=== PATIENT | male | born 1965 | race Caucasian/White ===

== ENCOUNTER 2017-02-23 12:01 | Observation (INO) | payer SELFPAY ==
[~2017-02-23 12:01] MED LIST: REGADENOSON INJ 0.4 MG/5 ML DISP.SYRIN IV ONE
--- NOTE | 2017-02-23 12:19 | ER Document Report ---
ED Medical Screen (RME) - General Stated Complaint: CHEST PAIN/BLOOD PRESSURE ISSUES Time seen by provider: 12:17 Mode of Arrival: Medic Information source: Patient Notes: 51-year-old male presents to ED for chest pain via EMS from the [facility] and [facility]. His initial blood pressure was 236/148 EMS his blood pressure was 220/120 manual. Some nausea and productive cough for couple days. He has had 4 baby aspirin one nitroglycerin 20 Angiocath in the right AC. Denies pain with this medicine. I have greeted and performed a rapid initial assessment of this patient. A comprehensive ED assessment and evaluation of the patient, analysis of test results and completion of medical decision making process will be conducted by an additional ED providers.
[2017-02-23 13:08] LABS: ABSOLUTE BASOPHILS # (AUTO) 0.1 10^3/uL (0.0-0.2); ABSOLUTE LYMPHOCYTES (AUTO) 2.4 10^3/uL (0.5-4.7); ABSOLUTE MONOCYTES (AUTO) 0.8 10^3/uL (0.1-1.4); ABSOLUTE NEUT (AUTO) 5.1 10^3/uL (1.7-8.2); BASOPHILS % (AUTO) 0.8 % (0-2); EOSINOPHILS % (AUTO) 0.5 % (0-6); HEMATOCRIT 53.5 % (37.9-51.0); HEMOGLOBIN 18.8 g/dL (13.5-17.0); HGB HCT DIFFERENCE 2.9; LYMPHOCYTES % (AUTO) 28.3 % (13-45); MEAN CORPUSCULAR HEMOGLOBIN 34.7 pg (27.0-33.4); MEAN CORPUSCULAR HGB CONC 35.1 g/dL (32.0-36.0); MEAN CORPUSCULAR VOLUME 99 fl (80-97); RED BLOOD COUNT 5.41 10^6/uL (4.35-5.55); RED CELL DISTRIBUTION WIDTH 14.3 % (11.5-14.0); SEGMENTED NEUTROPHILS % (AUTO) 61.4 % (42-78); WHITE BLOOD COUNT 8.4 10^3/uL (4.0-10.5)
[2017-02-23] MEDS ORDERED: NITROGLYCERIN 0.4 MG/TAB 25 TAB/BOTTLE SL PRN (13:09)
[2017-02-23] MEDS ORDERED: NITROGLYCERIN 0.4 MG/TAB 25 TAB/BOTTLE ONE (13:11)
[2017-02-23 13:14] LABS: PROTHROMBIN TIME 14.1 SEC (11.4-15.4)
[2017-02-23 13:15] LABS: PARTIAL THROMBOPLASTIN TIME 30.9 SEC (23.5-35.8)
[2017-02-23 13:34] LABS: ALANINE AMINOTRANSFERASE 115 U/L (21-72); ALBUMIN 4.9 g/dL (3.5-5.0); ALKALINE PHOSPHATASE 49 U/L (38-126); ANION GAP 19 (5-19); ASPARTATE AMINO TRANSFERASE 109 U/L (17-59); BILIRUBIN,DIRECT 0.5 mg/dL (0.0-0.4); BLOOD UREA NITROGEN 10 mg/dL (7-20); CALCIUM 10.7 mg/dL (8.4-10.2); CARBON DIOXIDE 26 mmol/L (22-30); CHLORIDE 97 mmol/L (98-107); CREATINE KINASE 63 U/L (55-170); CREATININE RESULT 0.69 mg/dL (0.52-1.25); GLUCOSE 112 mg/dL (75-110); MAGNESIUM 1.8 mg/dL (1.6-2.3); POTASSIUM 3.9 mmol/L (3.6-5.0); SODIUM 142.2 mmol/L (137-145); TOTAL PROTEIN 9.4 g/dL (6.3-8.2)
--- NOTE | 2017-02-23 13:37 | ER Document Report ---
ED General - General Chief Complaint: Headache Stated Complaint: CHEST PAIN/BLOOD PRESSURE ISSUES Mode of Arrival: Medic Information source: Patient Notes: 51-year-old male history of hypertension uncontrolled smoker presents with complaints of chest pressure sensation left-sided pain started yesterday continues today. Patient notes it feels better by rubbing his chest. TRAVEL OUTSIDE OF THE [place] IN LAST 30 DAYS: No - HPI Onset: Just prior to arrival Onset/Duration: Sudden Quality of pain: No pain Severity: Mild Pain Level: 1 Associated symptoms: Chest pain Exacerbated by: Denies Relieved by: Other Similar symptoms previously: No Recently seen / treated by doctor: No Past Medical History - General Information source: Patient - Social History Smoking Status: Current Every Day Smoker Cigarette use (# per day): Yes Chew tobacco use (# tins/day): No Smoking Education Provided: Yes - Patient counselled regarding cessation for 4 minutes Frequency of alcohol use: None Drug Abuse: None Family History: Reviewed & Not Pertinent Patient has suicidal ideation: No Patient has homicidal ideation: No Renal/ Medical History: Denies: Hx Peritoneal Dialysis Review of Systems - Review of Systems Notes: REVIEW OF SYSTEMS: CONSTITUTIONAL : Denies fever, chills, or sweats. Denies recent illness. EENT: Denies eye, ear, throat, or mouth pain or symptoms. Denies nasal or sinus congestion or discharge. Denies throat, tongue, or mouth swelling or difficulty swallowing. CARDIOVASCULAR: Admits chest pain RESPIRATORY: Denies cough, cold, or chest congestion. Denies shortness of breath, difficulty breathing, or wheezing. GASTROINTESTINAL: Denies abdominal pain or distention. Denies nausea, vomiting , or diarrhea. Denies blood in vomitus, stools, or per rectum. Denies black, tarry stools. Denies constipation. GENITOURINARY: Denies difficulty urinating, painful urination, burning, frequency, blood in urine, or discharge. MUSCULOSKELETAL: Denies back or neck pain or stiffness. Denies joint pain or swelling. SKIN: Denies rash, lesions or sores. HEMATOLOGIC : Denies easy bruising or bleeding. LYMPHATIC: Denies swollen, enlarged glands. NEUROLOGICAL: Denies confusion or altered mental status. Denies passing out or loss of consciousness. Denies dizziness or lightheadedness. Denies headache. Denies weakness or paralysis or loss of use of either side. Denies problems with gait or speech. Denies sensory loss, numbness, or tingling. Denies seizures. PSYCHIATRIC: Denies anxiety or stress. Denies depression, suicidal ideation, or homicidal ideation. ALL OTHER SYSTEMS REVIEWED AND NEGATIVE. Dictation was performed using [employer] voice recognition software PHYSICAL EXAMINATION: GENERAL: Well-appearing, well-nourished and in no acute distress. HEAD: Atraumatic, normocephalic. EYES: Pupils equal round and reactive to light, extraocular movements intact, sclera anicteric, conjunctiva are normal. ENT: Nares patent, oropharynx clear without exudates. Moist mucous membranes. NECK: Normal range of motion, supple without lymphadenopathy LUNGS: Breath sounds clear to auscultation bilaterally and equal. No wheezes rales or rhonchi. HEART: Regular rate and rhythm without murmurs ABDOMEN: Soft, nontender, nondistended abdomen. No guarding, no rebound. No masses appreciated. Musculoskeletal: Normal range of motion, no pitting or edema. No cyanosis. NEUROLOGICAL: Cranial nerves grossly intact. Normal speech, normal gait. Normal sensory, motor exams PSYCH: Normal mood, normal affect. SKIN: Warm, Dry, normal turgor, no rashes or lesions noted. Physical Exam - Vital signs Vitals: Temp Pulse BP Pulse Ox 97.8 F 107 H 199/131 H 99 02/23/17 12:24 02/23/17 12:24 02/23/17 12:24 02/23/17 12:24 Course - Re-evaluation Re-evalutation: 02/23/17 13:36 Patient appears to have symptoms of cardiac involvement, he was given one nitroglycerin and chest pain resolved significantly. He was also quite hypertensive on arrival 220s over 120. This may be contributory to his chest pain. Patient ordered 2 more nitroglycerin lab work pending at this time no obvious EKG changes were noted - Vital Signs Vital signs: Temp Pulse Resp BP Pulse Ox 97.8 F 125 H 17 176/120 H 96 02/23/17 12:24 02/23/17 13:11 02/23/17 13:11 02/23/17 13:11 02/23/17 13:11 - Laboratory Result Diagrams: 02/23/17 12:37 02/23/17 12:37 Laboratory results interpreted by me: 02/23/17 02/23/17 12:37 12:37 Hgb 18.8 H Hct 53.5 H MCV 99 H MCH 34.7 H RDW 14.3 H Plt Count 128 L Chloride 97 L Glucose 112 H Calcium 10.7 H Direct Bilirubin 0.5 H AST 109 H ALT 115 H Total Protein 9.4 H - EKG Interpretation by Me EKG shows normal: Sinus rhythm, [place], Intervals, QRS Complexes Critical Care Note - Critical Care Note Total time excluding time spent on procedures (mins): 34 Comments: 34 minutes of critical care time spent in direct contact evaluating and reevaluating the patient, treating symptoms, reviewing labs and studies and speaking with family and consultants excluding any procedures Discharge - Discharge Clinical Impression: Hypertensive urgency, malignant Chest pain Qualifiers: Chest pain type: unspecified Qualified Code(s): R07.9 - Chest pain, unspecified Condition: Stable Disposition: ADMITTED OBSERVATION Admitting Provider: Hospitalist Unit Admitted: Telemetry
[2017-02-23 13:45] LABS: CREATINE KINASE MB 0.98 ng/mL (<4.55)
[2017-02-23 13:46] LABS: TROPONIN I < 0.012 ng/mL
[2017-02-23] MEDS ORDERED: ACETAMINOPHEN 325 MG TABLET PO ONE (13:49)
[2017-02-23] MEDS ORDERED: HYDRALAZINE HCL INJ/PF 20 MG/1 ML SDV IV ONE (14:03)
[2017-02-23] MEDS ORDERED: ACETAMINOPHEN 325 MG TABLET PO PRN (17:22)
[2017-02-23] MEDS ORDERED: ONDANSETRON 4 MG TAB.RAPDIS PO PRN (17:22)
[2017-02-23] MEDS ORDERED: HYDRALAZINE HCL INJ/PF 20 MG/1 ML SDV IV PRN (17:28)
[2017-02-23] MEDS ORDERED: LORAZEPAM 0.5 MG TABLET PO PRN (17:31)
[2017-02-23] MEDS ORDERED: AMLODIPINE BESYLATE 5 MG TABLET PO SCH (18:00)
--- NOTE | 2017-02-23 18:05 | PDOC H&P ---
History of Present Illness Admission Date/PCP: 02/23/2017 Patient complains of: Chest pain History of Present Illness: YAMEL SZYMANSKI is a 51 year old male who presents with chest pain. The patient reports he first started having chest pain yesterday evening while he was sitting watching TV. He described the pain as a sharp sticking left substernal pain. He denies any radiation. Denies any nausea vomiting or diaphoresis. He denies any palpitations or tachycardia. He denies any orthopnea or PND. He reports the pain occurred both at rest and with exertion was unchanged. He reported the pain was 5 out of 10. The pain was intermittent overnight and as it continued today he presented to the emergency room. When he presented to the emergency room he was found to have a blood pressure of 220/120. Patient underwent a CT angiogram to evaluate for dissection and it was unremarkable. The patient has been given hydralazine as well as nitroglycerin and his blood pressures come down his chest pain has resolved. The patient is a smoker and smokes 1 pack per day but does not have any family history of heart disease. He has a history of hypertension but has been only partially compliant with his medication therapy. Past Medical History Cardiac Medical History: Reports: Hypertension Pulmonary Medical History: Reports: None Malignancy Medical History: Reports: None Musculoskeltal Medical History: Reports: None Hematology: Reports: None Past Surgical History Past Surgical History: Reports: Orthopedic Surgery - ARM Social History Information Source: Patient Lives with: Family Smoking Status: Current Every Day Smoker Frequency of Alcohol Use: Heavy Hx Recreational Drug Use: No Drugs: None Hx Prescription Drug Abuse: No - Advance Directive Resuscitation Status: Full Code Family History Family History: Father at 67 COPD. Mother at 72 with chronic renal failure, hypertension, rectal cancer. Parental Family History Reviewed: Yes Children Family History Reviewed: No Sibling(s) Family History Reviewed.: No Medication/Allergy Home Medications: Hydrochlorothiazide [Hydrodiuril 25 mg Tablet] 25 mg PO QAM 02/23/17 Review of Systems Constitutional: ABSENT: chills, fever(s), headache(s), weight gain, weight loss Ears: ABSENT: hearing changes Cardiovascular: PRESENT: chest pain Respiratory: ABSENT: cough, hemoptysis Gastrointestinal: ABSENT: abdominal pain, constipation, diarrhea, hematemesis, hematochezia, nausea, vomiting Genitourinary: ABSENT: dysuria, hematuria Musculoskeletal: ABSENT: joint swelling Integumentary: ABSENT: rash, wounds Neurological: ABSENT: abnormal gait, abnormal speech, confusion, dizziness, focal weakness, syncope Psychiatric: ABSENT: anxiety, depression, homidical ideation, suicidal ideation Endocrine: ABSENT: cold intolerance, heat intolerance, polydipsia, polyuria Hematologic/Lymphatic: ABSENT: easy bleeding, easy bruising Physical Exam Vital Signs: Temp Pulse Resp BP Pulse Ox 97.8 F 125 H 17 176/120 H 96 02/23/17 12:24 02/23/17 13:11 02/23/17 13:11 02/23/17 13:11 02/23/17 13:11 Intake & Output 02/22/17 02/23/17 02/24/17 06:59 06:59 06:59 Weight 90.3 kg General appearance: PRESENT: no acute distress, well-developed, well-nourished Head exam: PRESENT: atraumatic, normocephalic Eye exam: PRESENT: conjunctiva pink, EOMI, PERRLA. ABSENT: scleral icterus Ear exam: PRESENT: normal external ear exam Mouth exam: PRESENT: moist, tongue midline Neck exam: ABSENT: carotid bruit, JVD, lymphadenopathy, thyromegaly Respiratory exam: ABSENT: rales, rhonchi, wheezes Cardiovascular exam: PRESENT: RRR. ABSENT: diastolic murmur, rubs, systolic murmur GI/Abdominal exam: PRESENT: normal bowel sounds, soft. ABSENT: distended, guarding, mass, organolmegaly, rebound, tenderness Extremities exam: ABSENT: calf tenderness, clubbing, pedal edema Neurological exam: PRESENT: alert, awake, oriented to person, oriented to place , oriented to time, oriented to situation, CN II-XII grossly intact. ABSENT: motor sensory deficit Psychiatric exam: PRESENT: appropriate affect, normal mood. ABSENT: homicidal ideation, suicidal ideation Skin exam: PRESENT: dry, intact, warm. ABSENT: cyanosis, rash Results Laboratory Results: 02/23/17 12:37 02/23/17 12:37 02/23/17 02/23/17 12:37 12:37 WBC 8.4 RBC 5.41 Hgb 18.8 H Hct 53.5 H MCV 99 H MCH 34.7 H MCHC 35.1 RDW 14.3 H Plt Count 128 L Seg Neutrophils % 61.4 Lymphocytes % 28.3 Monocytes % 9.0 Eosinophils % 0.5 Basophils % 0.8 Absolute Neutrophils 5.1 Absolute Lymphocytes 2.4 Absolute Monocytes 0.8 Absolute Eosinophils 0.0 Absolute Basophils 0.1 Sodium 142.2 Potassium 3.9 Chloride 97 L Carbon Dioxide 26 Anion Gap 19 BUN 10 Creatinine 0.69 Est GFR ( Amer) > 60 Est GFR (Non-Af Amer) > 60 Glucose 112 H Calcium 10.7 H Magnesium 1.8 Total Bilirubin 1.0 AST 109 H ALT 115 H Alkaline Phosphatase 49 Total Protein 9.4 H Albumin 4.9 02/23/17 02/23/17 12:37 12:37 Creatine Kinase 63 CK-MB (CK-2) 0.98 Troponin I < 0.012 Impressions: Chest X-Ray 02/23/17 12:20 IMPRESSION: NO SIGNIFICANT RADIOGRAPHIC FINDING IN THE CHEST. Chest/Abdomen CTA 02/23/17 13:49 IMPRESSION: NORMAL CTA OF THE CHEST. NO PULMONARY EMBOLI. Assessment & Plan - Diagnosis (1) Chest pain Qualifiers: Chest pain type: unspecified Qualified Code(s): R07.9 - Chest pain, unspecified Is this a current diagnosis for this admission?: YesPlan: Patient's chest pain most likely is related to his uncontrolled hypertension. He does have the risk factors of being a smoker and we will monitor on telemetry and check serial cardiac enzymes. If his cardiac enzymes are negative we will obtain a stress test in the morning. Will give aspirin. (2) Hypertensive urgency, malignant Is this a current diagnosis for this admission?: YesPlan: Patient was given IV hydralazine emergency room as well as nitroglycerin sublingual. We'll start on Norvasc and continue when necessary hydralazine. - Time Time Spent: 50 to 70 Minutes - Plan Summary Plan Summary: he'll be given Ativan to use when necessary given that he has 4-5 mixed drinks daily.
[2017-02-23 19:08] LABS: CREATINE KINASE MB 0.96 ng/mL (<4.55)
[2017-02-23 19:09] LABS: TROPONIN I < 0.012 ng/mL
--- NOTE | 2017-02-23 20:42 | EKG REPORT ---
SEVERITY:- ABNORMAL ECG - SINUS TACHYCARDIA BORDERLINE LEFT AXIS DEVIATION : Confirmed by: Khalif Leigh 23-Feb-2017 20:42:06
[2017-02-23] MEDS ORDERED: LORAZEPAM INJ 2 MG/1 ML VIAL IV PRN (23:07)
[2017-02-23] MEDS ORDERED: LORAZEPAM INJ 2 MG/1 ML VIAL ONE (23:16)
[2017-02-23] MEDS ORDERED: THIAMINE HCL 100 MG, FOLIC ACID 1 MG in NORMAL SALINE 50 ML IV ONE (23:30)
[2017-02-24] MEDS ORDERED: METOPROLOL TARTRATE PF/INJ 5 MG/5 ML SDV IV PRN (00:06)
[2017-02-24 00:58] LABS: CREATINE KINASE MB 0.78 ng/mL (<4.55)
[2017-02-24 01:02] LABS: TROPONIN I < 0.012 ng/mL
[2017-02-24] MEDS ORDERED: THIAMINE HCL INJ 200 MG/2 ML VIAL ONE (01:05)
[2017-02-24] MEDS ORDERED: FOLIC ACID INJ 5 MG/1 ML 10 ML VIAL ONE (01:05)
[2017-02-24 06:39] LABS: HEMATOCRIT 49.6 % (37.9-51.0); HEMOGLOBIN 17.1 g/dL (13.5-17.0); HGB HCT DIFFERENCE 1.7; MEAN CORPUSCULAR HEMOGLOBIN 34.2 pg (27.0-33.4); MEAN CORPUSCULAR HGB CONC 34.5 g/dL (32.0-36.0); MEAN CORPUSCULAR VOLUME 99 fl (80-97); RED BLOOD COUNT 5.01 10^6/uL (4.35-5.55); RED CELL DISTRIBUTION WIDTH 14.1 % (11.5-14.0); WHITE BLOOD COUNT 7.4 10^3/uL (4.0-10.5)
[2017-02-24 06:53] LABS: ANION GAP 14 (5-19); BLOOD UREA NITROGEN 15 mg/dL (7-20); CALCIUM 10.3 mg/dL (8.4-10.2); CARBON DIOXIDE 26 mmol/L (22-30); CHLORIDE 98 mmol/L (98-107); CREATINE KINASE 48 U/L (55-170); CREATININE RESULT 0.73 mg/dL (0.52-1.25); GLUCOSE 99 mg/dL (75-110); MAGNESIUM 1.7 mg/dL (1.6-2.3); POTASSIUM 3.5 mmol/L (3.6-5.0); SODIUM 138.2 mmol/L (137-145)
[2017-02-24 07:02] LABS: CREATINE KINASE MB 0.84 ng/mL (<4.55)
[2017-02-24 07:03] LABS: TROPONIN I < 0.012 ng/mL
[2017-02-24] MEDS ORDERED: HYDROCHLOROTHIAZIDE 25 MG TABLET PO SCH (08:00)
[2017-02-24] MEDS ORDERED: CLONIDINE HCL 0.1 MG TABLET PO ONE (08:30)
[2017-02-24] MEDS ORDERED: THIAMINE HCL 100 MG, FOLIC ACID 1 MG in NORMAL SALINE 50 ML IV SCH ×2 (10:00→22:00)
[2017-02-24] MEDS ORDERED: ASPIRIN 325 MG TABLET PO SCH (10:00)
--- NOTE | 2017-02-24 16:13 | PDOC DISCHARGE SUMMARY ---
General - Admit/Disc Date/PCP Admission Date/Primary Care Provider: 02/23/17 17:23 Discharge Date: 02/24/17 - Discharge Diagnosis (1) Chest pain Is this a current diagnosis for this admission?: YesSummary: This likely secondary to the hypertensive urgency (2) Hypertensive urgency, malignant Is this a current diagnosis for this admission?: Yes - Additional Information Resuscitation Status: Full Code Discharge Diet: Cardiac Discharge Activity: Activity As Tolerated Home Medications: Amlodipine Besylate [Norvasc 5 mg Tablet] 5 mg PO QPM #30 tablet 02/24/17 Aspirin [Aspirin 325 mg Tablet] 325 mg PO DAILY tablet 02/24/17 Hydrochlorothiazide [Hydrodiuril 25 mg Tablet] 25 mg PO QAM #30 tablet 02/24/17 History of Present Illness History of Present Illness: YAMEL SZYMANSKI is a 51 year old male who presents with chest pain. The patient reports he first started having chest pain yesterday evening while he was sitting watching TV. He described the pain as a sharp sticking left substernal pain. He denies any radiation. Denies any nausea vomiting or diaphoresis. He denies any palpitations or tachycardia. He denies any orthopnea or PND. He reports the pain occurred both at rest and with exertion was unchanged. He reported the pain was 5 out of 10. The pain was intermittent overnight and as it continued today he presented to the emergency room. When he presented to the emergency room he was found to have a blood pressure of 220/120. Patient underwent a CT angiogram to evaluate for dissection and it was unremarkable. The patient has been given hydralazine as well as nitroglycerin and his blood pressures come down his chest pain has resolved. The patient is a smoker and smokes 1 pack per day but does not have any family history of heart disease. He has a history of hypertension but has been only partially compliant with his medication therapy. Hospital Course Hospital Course: Patient presented with chest pain and very elevated blood pressures. His blood pressure was reduced in his chest pain had resolved. He was monitored on telemetry and had negative cardiac enzymes. Patient then underwent a Cardiolite stress test which showed no evidence for reversible ischemia. Patient is discharged home and will take his usual HCTZ along with Norvasc. He is also encouraged to quit smoking Physical Exam Vital Signs: Temp Pulse Resp BP Pulse Ox 98.5 F 98 20 149/103 H 97 02/24/17 11:39 02/24/17 11:39 02/24/17 11:39 02/24/17 11:39 02/24/17 11:39 Intake & Output 02/23/17 02/24/17 02/25/17 06:59 06:59 06:59 Intake Total 330 Balance 330 Weight 90.3 kg General appearance: PRESENT: no acute distress Eye exam: PRESENT: conjunctiva pink. ABSENT: scleral icterus Mouth exam: PRESENT: moist, tongue midline Neck exam: ABSENT: JVD Respiratory exam: PRESENT: clear to auscultation [place]. ABSENT: rales, rhonchi, wheezes Cardiovascular exam: PRESENT: RRR. ABSENT: diastolic murmur, rubs, systolic murmur GI/Abdominal exam: PRESENT: normal bowel sounds, soft. ABSENT: distended, guarding, mass, organolmegaly, rebound, tenderness Extremities exam: ABSENT: calf tenderness, clubbing, pedal edema Neurological exam: PRESENT: alert, awake, oriented to person, oriented to place , oriented to time, oriented to situation, CN II-XII grossly intact. ABSENT: motor sensory deficit Psychiatric exam: PRESENT: appropriate affect Skin exam: PRESENT: dry, intact, warm. ABSENT: cyanosis, rash Results Laboratory Results: 02/24/17 06:10 02/24/17 06:10 02/24/17 02/24/17 02/24/17 00:24 06:10 06:10 WBC 7.4 RBC 5.01 Hgb 17.1 H Hct 49.6 MCV 99 H MCH 34.2 H MCHC 34.5 RDW 14.1 H Plt Count 110 L Sodium 138.2 Potassium 3.5 L Chloride 98 Carbon Dioxide 26 Anion Gap 14 BUN 15 Creatinine 0.73 Est GFR ( Amer) > 60 Est GFR (Non-Af Amer) > 60 Glucose 99 Calcium 10.3 H Magnesium 1.7 Lipase 203.0 02/23/17 02/23/17 02/24/17 18:21 18:21 00:24 Creatine Kinase 61 61 CK-MB (CK-2) 0.96 Troponin I < 0.012 02/24/17 02/24/17 02/24/17 00:24 06:10 06:10 Creatine Kinase 48 L CK-MB (CK-2) 0.78 0.84 Troponin I < 0.012 < 0.012 Impressions: Chest X-Ray 02/23/17 12:20 IMPRESSION: NO SIGNIFICANT RADIOGRAPHIC FINDING IN THE CHEST. Chest/Abdomen CTA 02/23/17 13:49 IMPRESSION: NORMAL CTA OF THE CHEST. NO PULMONARY EMBOLI. Qualifiers PATEINT BEING DISCHARGED WITH ANY OF THE FOLLOWING DIAGNOSIS?: No
[2017-02-24 17:26] VITALS: BP 147/90
--- NOTE | 2017-02-27 17:09 | DRAGON STRESS TEST REPORT ---
Intravenous Lexiscan Cardiolite stress test using single photon emmision computerized tomography. Date of procedure: 02/22/2017. Ordering Provider: Dr. Gaby Earl. Primary Care Physician: Dr. GORDON. Indication: Chest pain and dyspnea on exertion. Coronary risk factors: Age, non -insulin-dependent diabetes mellitus, hypertension, and family history of coronary artery disease. Resting EKG: Sinus Rhythm. Within Normal Limits. Stress EKG: No changes of ischemia. The patient had no chest pain or discomfort, and there were no arrhythmias seen. Reason for termination: Protocol. Conclusions: Normal EKG and hemodynamic response to IV Lexiscan. Nuclear data: At rest the patient was given 11.77 millicuries of technetium 99m sestamibi injected intravenously. As per protocol rest non gated SPECT images were obtained. Subsequently the patient was given intravenous Lexiscan at a dose of 0.4 mg in 5 mL intravenously, followed by flush with normal saline. Subsequently the stress dose of 36.0 millicuries of technetium 99m sestamibi was injected intravenously. As per protocol stress gated images were obtained. Nuclear interpretation: Review of images showed that there is a perfusion defect in the mid and basal inferior alanis which is slightly more prominent in the stress images compared with the rest images. This area has decreased motion contraction and thickening by gated study. Also there is a mild perfusion defect in the distal inferolateral wall in both the rest and stress images. This area of the distal inferolateral wall has diminished motion contraction and thickening. The rest of the segments of the myocardium had normal perfusion at rest, and normal perfusion post stress with IV Lexiscan. The rest of the Segments of the myocardium had normal motion, contraction, and thickening by gated study. T. I D. ratio was abnormal at 1.36. Visually this is not reliable.. Computer read rest, and stress left ventricular ejection fraction were 69 %, and an 73 % , respectively. Conclusion: 1. There is scintigraphic evidence of Lexiscan induced minimal myocardial ischemia in a setting of scar in the mid and basal inferior alanis 2. There is scintigraphic evidence of mild myocardial infarction/scar involving the distal inferolateral wall. Recommendations: 1.aggressive treatment of coronary artery disease. 2.if the patient continues to be symptomatic with chest pains and dyspnea on exertion, then would recommend a cardiac catheterization to see if patient has ischemic mitral regurgitation, and the extent of presence of coronary artery disease the patient. 3.Aggressive risk factor modification, and treating the underlying co- morbidities. Interpreting Physician: MD MIKAELA MCCLURE
== END 2017-02-24 16:00 | disposition home or self-care (01) ==
LOC: ER 12:01 → EH 17:23 → UNDOADMOB 17:55 → 4N 21:54
PROVIDERS: ADMIT Emergency Medicine; ATTEND Emergency Medicine
PROC: 3E033GC Introduction of Other Therapeutic Substance into Peripheral Vein, Percutaneous Approach (ICD-10-PCS; principal; 2017-02-23)
DX: R07.9 Chest pain, unspecified (principal); I16.0 Hypertensive urgency; I10 Essential (primary) hypertension; F17.210 Nicotine dependence, cigarettes, uncomplicated
CPT/HCPCS: 93005; 99406; 99291; 96374; 36415 ×2; 82553 ×2; 82550 ×2; 83690; 83735 ×2; 85025; 85027; 85610; 85730; 80048; 80053; 84484 ×2; 93017; 71020; 78452; 71275; 93010; G0378 ×3; A9500; J2785; J3490 ×3; J0360; J2060; J3411; Q9969

== ENCOUNTER → 2017-06-15 | Outpatient (CLI) | payer OTHER ==
[2017-06-15 16:02] LABS: ANION GAP 18 (5-19); BLOOD UREA NITROGEN 17 mg/dL (7-20); CARBON DIOXIDE 25 mmol/L (22-30); CHLORIDE 93 mmol/L (98-107); CREATININE RESULT 0.95 mg/dL (0.52-1.25); GLUCOSE 102 mg/dL (75-110); POTASSIUM 3.9 mmol/L (3.6-5.0); SODIUM 135.5 mmol/L (137-145)
== END ==
LOC: CCC 14:50
DX: I10 Essential (primary) hypertension (principal)
CPT/HCPCS: 36415; 80048; 83036; 84443

== ENCOUNTER → 2017-10-13 | Outpatient (CLI) | payer OTHER ==
[2017-10-13 14:18] LABS: ABSOLUTE BASOPHILS # (AUTO) 0.1 10^3/uL (0.0-0.2); ABSOLUTE EOSINOPHILS # (AUTO) 0.1 10^3/uL (0.0-0.6); ABSOLUTE LYMPHOCYTES (AUTO) 1.7 10^3/uL (0.5-4.7); ABSOLUTE MONOCYTES (AUTO) 0.5 10^3/uL (0.1-1.4); BASOPHILS % (AUTO) 1.4 % (0-2); EOSINOPHILS % (AUTO) 1.2 % (0-6); HEMATOCRIT 41.9 % (37.9-51.0); HGB HCT DIFFERENCE 3.1; MEAN CORPUSCULAR HEMOGLOBIN 36.6 pg (27.0-33.4); MEAN CORPUSCULAR HGB CONC 35.7 g/dL (32.0-36.0); MEAN CORPUSCULAR VOLUME 102 fl (80-97); RED CELL DISTRIBUTION WIDTH 14.9 % (11.5-14.0); SEGMENTED NEUTROPHILS % (AUTO) 56.4 % (42-78); WHITE BLOOD COUNT 5.4 10^3/uL (4.0-10.5)
[2017-10-13 14:33] LABS: ALANINE AMINOTRANSFERASE 162 U/L (21-72); ALBUMIN 5.2 g/dL (3.5-5.0); ALKALINE PHOSPHATASE 38 U/L (38-126); ANION GAP 17 (5-19); ASPARTATE AMINO TRANSFERASE 157 U/L (17-59); BILIRUBIN,DIRECT 0.6 mg/dL (0.0-0.4); BILIRUBIN,TOTAL 1.2 mg/dL (0.2-1.3); BLOOD UREA NITROGEN 19 mg/dL (7-20); CALCIUM 10.6 mg/dL (8.4-10.2); CARBON DIOXIDE 28 mmol/L (22-30); CHLORIDE 97 mmol/L (98-107); CREATININE RESULT 1.23 mg/dL (0.52-1.25); GLUCOSE 111 mg/dL (75-110); POTASSIUM 3.6 mmol/L (3.6-5.0); SODIUM 142.4 mmol/L (137-145)
== END ==
LOC: CCC 13:31
DX: I10 Essential (primary) hypertension (principal)
CPT/HCPCS: 36415; 80053; 85025

== ENCOUNTER → 2017-11-13 | Outpatient (CLI) | payer OTHER ==
[2017-11-15 07:41] LABS: HEPATITIS C VIRUS AB 0.1 s/co ratio (0.0-0.9)
[2017-11-15 13:38] LABS: FOL RBC HEMATOCRIT 37.2 % (37.5-51.0); FOLATE HEMOLYSATE 271.3 ng/mL (Not Estab.)
[2017-11-15 13:49] LABS: FOLATE RBC 3 729 ng/mL (>498)
== END ==
LOC: OD 13:19
DX: D75.89 Other specified diseases of blood and blood-forming organs (principal); R94.5 Abnormal results of liver function studies
CPT/HCPCS: 36415; 82310; 82607; 82747; 86317; 86704; 86803; 86804; 87340

== ENCOUNTER → 2017-12-06 | Outpatient (CLI) | payer OTHER ==
[~2017-12-06] MED LIST changes: +ALBUTEROL SULFATE 0.083% NEB 2.5 MG/3 ML AMPUL NEB ONE; -REGADENOSON INJ 0.4 MG/5 ML DISP.SYRIN IV ONE
--- NOTE | 2017-12-08 11:31 | PULMONARY FUNCTION TEST ---
DATE OF SERVICE: 12/06/2017 THE VITAL CAPACITY IS NORMAL. THE EXPIRATORY FLOW RATES ARE MODERATELY DECREASED. THE FEV1/VC IS 53%, PREDICTED: 81% AFTER BRONCHODILATOR, EXPIRATORY FLOW RATES SHOW NO SIGNIFICANT CHANGE. IMPRESSION: GOOD PATIENT EFFORT. MODERATE OBSTRUCTIVE DEFECT. CC: HENNA SINGH MD > MIKAELA
== END ==
LOC: RT 12:56
PROVIDERS: ATTEND Internal Medicine
DX: R05 Cough (principal); Z72.0 Tobacco use
CPT/HCPCS: 94060

== ENCOUNTER 2018-09-04 09:46 | Emergency (ER) | payer SELFPAY ==
[2018-09-04] MEDS ORDERED: ASPIRIN 81 MG TABLET, CHEWABLE PO ONE (10:28)
--- NOTE | 2018-09-04 10:31 | ER Document Report ---
ED Medical Screen (RME) - General Chief Complaint: Black/Tarry Stools Stated Complaint: SHORTNESS OF BREATH Time Seen by Provider: 09/04/18 10:22 TRAVEL OUTSIDE OF THE [place] IN LAST 30 DAYS: No - HPI Patient complains to provider of: short of breath Onset: Other - This 53-year-old male presents for evaluation of shortness of breath over the last week as well as a single episode of syncope and dark stools in the setting of having taken Pepto-Bismol last night. He is a very poor historian is difficult to ascertain what medications he is on what health problems he does have though it does sound like he does have COPD and uses inhalers at home as well as hypertension. He does have cramping right-sided chest pain associated with this. Nothing is made it better nothing made it worse. - Related Data Allergies/Adverse Reactions: aspirin [From [facility]] Allergy (Verified 02/23/17 20:51) caffeine [From [facility]] Allergy (Verified 02/23/17 20:51) orphenadrine [From [facility]] Allergy (Verified 02/23/17 20:51) Past Medical History - Social History Chew tobacco use (# tins/day): No Frequency of alcohol use: Heavy Drug Abuse: Marijuana - Past Medical History Cardiac Medical History: Reports: Hx Hypertension Renal/ Medical History: Denies: Hx Peritoneal Dialysis Past Surgical History: Reports: Hx Orthopedic Surgery - ARM Physical Exam - Vital signs Vitals: Temp Pulse Resp BP Pulse Ox 98.5 F 103 H 18 139/89 H 99 09/04/18 09:52 09/04/18 09:52 09/04/18 09:52 09/04/18 09:52 09/04/18 09:52 Course - Re-evaluation Re-evalutation: 09/04/18 10:31 I have performed a rapid medical screening exam, I have evaluated the patient, I have made a determination based on this patient's medical condition for further evaluation. This gentleman appears somewhat ill in the provider in triage area. We that he requires further evaluation. We will initiate cardiac workup as well as evaluation of his lungs. - Vital Signs Vital signs: Temp Pulse Resp BP Pulse Ox 98.5 F 103 H 18 139/89 H 99 09/04/18 09:52 09/04/18 09:52 09/04/18 09:52 09/04/18 09:52 09/04/18 09:52 Doctor's Discharge - Discharge Referrals: [facility] [Primary Care Provider] - Follow up as needed
--- NOTE | 2018-09-04 11:00 | RADIOLOGY REPORT (SQ) ---
EXAM DESCRIPTION: CHEST SINGLE VIEW COMPLETED DATE/TIME: 09/04/2018 10:44 am REASON FOR STUDY: short of breath COMPARISON: 02/23/2017. EXAM PARAMETERS: NUMBER OF VIEWS: One view. TECHNIQUE: Single frontal radiographic view of the chest acquired. RADIATION DOSE: NA LIMITATIONS: None. FINDINGS: LUNGS AND PLEURA: No opacities, masses or pneumothorax. No pleural effusion. MEDIASTINUM AND HILAR STRUCTURES: No masses. Contour normal. HEART AND VASCULAR STRUCTURES: Heart normal in size. Normal vasculature. BONES: No acute findings. HARDWARE: None in the chest. OTHER: No other significant finding. IMPRESSION: NO ACUTE RADIOGRAPHIC FINDING IN THE CHEST. TECHNICAL DOCUMENTATION: JOB ID: [id number] [employer]- All Rights Reserved Reading location - IP/workstation name: [email or web address]
[2018-09-04 11:34] LABS: ABSOLUTE LYMPHOCYTES (AUTO) 1.1 10^3/uL (0.5-4.7); ABSOLUTE MONOCYTES (AUTO) 0.5 10^3/uL (0.1-1.4); ABSOLUTE NEUT (AUTO) 2.7 10^3/uL (1.7-8.2); BASOPHILS % (AUTO) 0.5 % (0-2); EOSINOPHILS % (AUTO) 0.1 % (0-6); HEMATOCRIT 37.7 % (37.9-51.0); HEMOGLOBIN 13.5 g/dL (13.5-17.0); LYMPHOCYTES % (AUTO) 25.1 % (13-45); MEAN CORPUSCULAR HEMOGLOBIN 38.9 pg (27.0-33.4); MEAN CORPUSCULAR HGB CONC 35.9 g/dL (32.0-36.0); MEAN CORPUSCULAR VOLUME 108 fl (80-97); MONOCYTES % (AUTO) 11.6 % (3-13); PLATELET COUNT 128 10^3/uL (150-450); RED BLOOD COUNT 3.48 10^6/uL (4.35-5.55); RED CELL DISTRIBUTION WIDTH 15.5 % (11.5-14.0); SEGMENTED NEUTROPHILS % (AUTO) 62.7 % (42-78); TOTAL CELLS COUNTED % (AUTO) 100 %; WHITE BLOOD COUNT 4.3 10^3/uL (4.0-10.5)
[2018-09-04 11:58] LABS: ALANINE AMINOTRANSFERASE 46 U/L (21-72); ALBUMIN 4.6 g/dL (3.5-5.0); ALKALINE PHOSPHATASE 45 U/L (38-126); ANION GAP 12 (5-19); ASPARTATE AMINO TRANSFERASE 89 U/L (17-59); BILIRUBIN,DIRECT 0.7 mg/dL (0.0-0.4); BILIRUBIN,TOTAL 1.2 mg/dL (0.2-1.3); BLOOD UREA NITROGEN 20 mg/dL (7-20); CALCIUM 9.9 mg/dL (8.4-10.2); CARBON DIOXIDE 26 mmol/L (22-30); CHLORIDE 94 mmol/L (98-107); CREATINE KINASE 60 U/L (55-170); GLUCOSE 101 mg/dL (75-110); POTASSIUM 4.4 mmol/L (3.6-5.0); SODIUM 132.3 mmol/L (137-145); TOTAL PROTEIN 8.8 g/dL (6.3-8.2)
[2018-09-04 12:10] LABS: CREATINE KINASE MB 1.46 ng/mL (<4.55)
[2018-09-04 12:11] LABS: TROPONIN I < 0.012 ng/mL
--- NOTE | 2018-09-04 12:39 | ER Document Report ---
ED General - General Chief Complaint: Black/Tarry Stools Stated Complaint: SHORTNESS OF BREATH Time Seen by Provider: 09/04/18 10:22 Notes: 53-year-old male to the emergency department chief complaint of abdominal pain, cough, generally not feeling well. Patient states that his house has a lot of mold in his breathing is getting worse. Patient does smoke. Over the last couple of days he has been having some abdominal pain. Took some Pepto-Bismol. Today noticed that his stool was black so he thinks he may be having a GI bleed. Pain is located in the epigastric region. Sharp. Nonradiating. No other significant signs or symptoms at this time. Has hypertension and takes medications for that but otherwise does not take any other medications. Has never had a colonoscopy. TRAVEL OUTSIDE OF THE [place] IN LAST 30 DAYS: No - HPI Onset: Yesterday Onset/Duration: Gradual Quality of pain: Achy, Sharp - Related Data Allergies/Adverse Reactions: aspirin [From [facility]] Allergy (Verified 02/23/17 20:51) caffeine [From [facility]] Allergy (Verified 02/23/17 20:51) orphenadrine [From [facility]] Allergy (Verified 02/23/17 20:51) Past Medical History - General Information source: Patient - Social History Smoking Status: Current Every Day Smoker Chew tobacco use (# tins/day): No Frequency of alcohol use: Heavy Drug Abuse: Marijuana Family History: Reviewed & Not Pertinent Patient has suicidal ideation: No Patient has homicidal ideation: No - Past Medical History Cardiac Medical History: Reports: Hx Hypertension Pulmonary Medical History: Reports: Hx COPD Renal/ Medical History: Denies: Hx Peritoneal Dialysis Past Surgical History: Reports: Hx Orthopedic Surgery - ARM Review of Systems - Review of Systems Notes: Constitutional: denies: Chills, Diaphoresis, Fever, Malaise, Weakness EENT: denies: Eye discharge, Blurred vision, Tearing, Double vision, Nose congestion, Nose discharge, Throat swelling, Mouth pain Cardiovascular: denies: Palpitations, Heart racing, Orthopnea, Dyspnea, Chest pain Respiratory: denies: Cough, Hurts to breathe, Wheezing, Shortness of breath 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 No vomiting. No diarrhea. Questionable dark tarry colored stool stool Genitourinary: denies: Burning, Dysuria, Discharge, Frequency, Flank pain, Hematuria Musculoskeletal: denies: Joint pain, Joint swelling, Muscle pain, Muscle stiffness, back pain Hematologic/Lymphatic: denies: Anemia, Easy bleeding, Easy bruising, Blood clots Neurological/Psychological: denies: Confusion, Dementia, Depression, Loss of consciousness Skin: No lesions, no masses, no skin breakdown, no abscesses Physical Exam - Vital signs Vitals: Temp Pulse Resp BP Pulse Ox 98.5 F 103 H 18 139/89 H 99 09/04/18 09:52 09/04/18 09:52 09/04/18 09:52 09/04/18 09:52 09/04/18 09:52 Interpretation: Normal - General General appearance: Appears well, Alert - HEENT Head: Normocephalic, Atraumatic Eyes: Normal Pupils: PERRL - Respiratory Respiratory status: No respiratory distress Chest status: Nontender Breath sounds: Normal Chest palpation: Normal - Cardiovascular Rhythm: Regular Heart sounds: Normal auscultation Murmur: No - Abdominal Inspection: Normal Distension: No distension Bowel sounds: Normal Tenderness: Tender - Tenderness in the epigastric region Organomegaly: No organomegaly - Rectal Tenderness: No Stool: Heme negative Hemorrhoids: None Prostate: Normal - Back Back: Normal, Nontender - Extremities General upper extremity: Normal inspection, Nontender, Normal color, Normal ROM , Normal temperature General lower extremity: Normal inspection, Nontender, Normal color, Normal ROM , Normal temperature, Normal weight bearing. No: Pawel's sign - Neurological Neuro grossly intact: Yes Cognition: Normal Orientation: AAOx4 Rosman Coma Scale Eye Opening: Spontaneous Rosman Coma Scale Verbal: Oriented Pauline Coma Scale Motor: Obeys Commands Pauline Coma Scale Total: 15 Speech: Normal Motor strength normal: LUE, RUE, LLE, RLE Sensory: Normal - Psychological Associated symptoms: Normal affect, Normal mood - Skin Skin Temperature: Warm Skin Moisture: Dry Skin Color: Normal Course - Re-evaluation Re-evalutation: 09/04/18 14:14 Patient does not have any evidence of a GI bleed. Occult blood negative. Hemoglobin and hematocrit unremarkable. Does have quite a significant elevation of his MCV so probably has been a drinker in his life. Shot of B12 was given. Some Pepcid was given. Ultrasound did not reveal any significant gallstones. Did have some mild pericholecystic fluid but no significant right upper quadrant tenderness. No gallstones. Chest x-ray was unremarkable. At this time will recommend some Zantac. Patient advised to return if symptoms get worse. Patient denied any chest pain to me while in the emergency department. Cardiac labs are ordered as well as an EKG which were unremarkable 09/04/18 14:15 Laboratory 09/04/18 09/04/18 09/04/18 10:43 10:43 10:43 WBC 4.3 RBC 3.48 L Hgb 13.5 Hct 37.7 L MCV 108 H MCH 38.9 H MCHC 35.9 RDW 15.5 H Plt Count 128 L Seg Neutrophils % 62.7 Lymphocytes % 25.1 Monocytes % 11.6 Eosinophils % 0.1 Basophils % 0.5 Absolute Neutrophils 2.7 Absolute Lymphocytes 1.1 Absolute Monocytes 0.5 Absolute Eosinophils 0.0 Absolute Basophils 0.0 Sodium 132.3 L Potassium 4.4 Chloride 94 L Carbon Dioxide 26 Anion Gap 12 BUN 20 Creatinine 1.28 H Est GFR ( Amer) > 60 Est GFR (Non-Af Amer) 59 L Glucose 101 Calcium 9.9 Total Bilirubin 1.2 Direct Bilirubin 0.7 H Neonat Total Bilirubin Not Reportable Neonat Direct Bilirubin Not Reportable Neonat Indirect Bili Not Reportable AST 89 H ALT 46 Alkaline Phosphatase 45 Creatine Kinase 60 CK-MB (CK-2) 1.46 Troponin I < 0.012 Total Protein 8.8 H Albumin 4.6 Lipase Stool Occult Blood Blood Type Antibody Screen 09/04/18 09/04/18 09/04/18 10:43 10:43 12:44 WBC RBC Hgb Hct MCV MCH MCHC RDW Plt Count Seg Neutrophils % Lymphocytes % Monocytes % Eosinophils % Basophils % Absolute Neutrophils Absolute Lymphocytes Absolute Monocytes Absolute Eosinophils Absolute Basophils Sodium Potassium Chloride Carbon Dioxide Anion Gap BUN Creatinine Est GFR ( Amer) Est GFR (Non-Af Amer) Glucose Calcium Total Bilirubin Direct Bilirubin Neonat Total Bilirubin Neonat Direct Bilirubin Neonat Indirect Bili AST ALT Alkaline Phosphatase Creatine Kinase CK-MB (CK-2) Troponin I Total Protein Albumin Lipase 291.6 Stool Occult Blood NEGATIVE Blood Type A POSITIVE Antibody Screen NEGATIVE Chest X-Ray 09/04/18 10:28 IMPRESSION: NO ACUTE RADIOGRAPHIC FINDING IN THE CHEST. Abdomen Ultrasound 09/04/18 12:50 IMPRESSION: FATTY INFILTRATION OF THE LIVER. TRACE PERICHOLECYSTIC FLUID. NO GALLSTONES. NO BILIARY DILATION. 09/04/18 14:19 - Vital Signs Vital signs: Temp Pulse Resp BP Pulse Ox 98.5 F 103 H 18 139/89 H 100 09/04/18 09:52 09/04/18 09:52 09/04/18 09:52 09/04/18 09:52 09/04/18 12:38 - Laboratory Result Diagrams: 09/04/18 10:43 09/04/18 10:43 Laboratory results interpreted by me: 09/04/18 09/04/18 10:43 10:43 RBC 3.48 L Hct 37.7 L MCV 108 H MCH 38.9 H RDW 15.5 H Plt Count 128 L Sodium 132.3 L Chloride 94 L Creatinine 1.28 H Est GFR (Non-Af Amer) 59 L Direct Bilirubin 0.7 H AST 89 H Total Protein 8.8 H - EKG Interpretation by Me EKG shows normal: Sinus rhythm, [place], QRS Complexes, ST-T Waves Heart block present: 1st Degree Discharge - Discharge Clinical Impression: Epigastric abdominal pain Condition: Good Disposition: HOME, SELF-CARE Instructions: Abdominal Pain ([facility]) Additional Instructions: In the event that your belly pain is getting worse, you begin to have significant vomiting, bloody stools, black tarry colored stool or other concerns please return. I am advising that you take an acid blocking medication for the next 2 weeks. This can help calm the stomach down a little bit. You were given your first dose while in the emergency department. This is an [id number] medication which the generic version is quite cheap. I advised that you get this medication and begin it today. In the event that you have any worsening symptoms over the next 12-24 hours especially worsening pain in the abdomen you will need a repeat evaluation so please return to the emergency department so that we can recheck you. Prescriptions: Ranitidine HCl [Zantac] 150 mg PO BID 14 Days #28 tablet Referrals: [facility] [NO LOCAL MD] - Follow up as needed
[2018-09-04] MEDS ORDERED: FAMOTIDINE INJ/PF 20 MG/2 ML SDV IV ONE (12:50)
[2018-09-04] MEDS ORDERED: CYANOCOBALAMIN (VITAMIN B-12) INJ 1000 MCG/1 ML VIAL IM ONE (13:03)
--- NOTE | 2018-09-04 14:07 | RADIOLOGY REPORT (SQ) ---
EXAM DESCRIPTION: U/S ABDOMEN LIMITED W/O DOP COMPLETED DATE/TIME: 09/04/2018 1:53 pm REASON FOR STUDY: Epigastric and right upper quadrant abdominal pain COMPARISON: None. TECHNIQUE: Dynamic and static grayscale images acquired of the abdomen and recorded on PACS. Additio nal selected color Doppler and spectral images recorded. LIMITATIONS: None. FINDINGS: PANCREAS: No masses. Visualized pancreatic duct normal caliber. LIVER: Normal size. Heterogenous increased echogenicity No focal masses LIVER VASCULATURE: Normal directional flow of the main portal vein and hepatic veins. GALLBLADDER: No stones. Normal wall thickness. Trace pericholecystic fluid. ULTRASOUND-DETECTED MONTIEL'S SIGN: Negative. INTRAHEPATIC DUCTS AND COMMON DUCT: CBD and intrahepatic ducts normal caliber. No filling defects. INFERIOR VENA CAVA: Normal flow. AORTA: No aneurysm. RIGHT KIDNEY: Normal size. Normal echogenicity. No solid or suspicious masses. No hydronephros is. No calcifications. PERITONEAL AND RIGHT PLEURAL SPACE: No ascites or effusions. OTHER: No other significant findings. IMPRESSION: FATTY INFILTRATION OF THE LIVER. TRACE PERICHOLECYSTIC FLUID. NO GALLSTONES. NO BILIA RY DILATION. TECHNICAL DOCUMENTATION: JOB ID: [id number] [employer]- All Rights Reserved Reading location - IP/workstation name: [email or web address]
[2018-09-04 14:27] VITALS: BP 148/97
--- NOTE | 2018-09-04 19:52 | EKG REPORT ---
SEVERITY:- ABNORMAL ECG - SINUS RHYTHM FIRST DEGREE AV BLOCK CONSIDER POSTERIOR INFARCT : Confirmed by: Gaby Earl MD 04-Sep-2018 19:51:36
== END 2018-09-04 14:37 | disposition home or self-care (01) ==
LOC: ER 09:46
DX: R10.13 Epigastric pain (principal); R05 Cough; K76.0 Fatty (change of) liver, not elsewhere classified; I44.0 Atrioventricular block, first degree; F12.10 Cannabis abuse, uncomplicated; J44.9 Chronic obstructive pulmonary disease, unspecified; F17.200 Nicotine dependence, unspecified, uncomplicated; I10 Essential (primary) hypertension; Z77.120 Contact with and (suspected) exposure to mold (toxic); Z79.899 Other long term (current) drug therapy; Z88.6 Allergy status to analgesic agent; Z88.8 Allergy status to other drugs, medicaments and biological substances
CPT/HCPCS: 93005; 99285; 96372; 96374; 86900; 86901; 36415; 82553; 86850; 82550; 83690; 85025; 82272; 80053; 84484; 71045; 76705; 93010; J3420; S0028

== ENCOUNTER → 2019-06-18 | Outpatient (CLI) | payer OTHER ==
[2019-06-18 10:13] LABS: ABSOLUTE BASOPHILS # (AUTO) 0.1 10^3/uL (0.0-0.2); ABSOLUTE EOSINOPHILS # (AUTO) 0.1 10^3/uL (0.0-0.6); ABSOLUTE LYMPHOCYTES (AUTO) 1.4 10^3/uL (0.5-4.7); ABSOLUTE MONOCYTES (AUTO) 0.5 10^3/uL (0.1-1.4); ABSOLUTE NEUT (AUTO) 2.4 10^3/uL (1.7-8.2); BASOPHILS % (AUTO) 1.3 % (0-2); EOSINOPHILS % (AUTO) 1.9 % (0-6); HEMATOCRIT 36.9 % (37.9-51.0); HEMOGLOBIN 12.8 g/dL (13.5-17.0); LYMPHOCYTES % (AUTO) 32.3 % (13-45); MEAN CORPUSCULAR HEMOGLOBIN 36.7 pg (27.0-33.4); MEAN CORPUSCULAR HGB CONC 34.7 g/dL (32.0-36.0); MEAN CORPUSCULAR VOLUME 106 fl (80-97); MONOCYTES % (AUTO) 10.5 % (3-13); PLATELET COUNT 112 10^3/uL (150-450); RED BLOOD COUNT 3.49 10^6/uL (4.35-5.55); RED CELL DISTRIBUTION WIDTH 14.1 % (11.5-14.0); TOTAL CELLS COUNTED % (AUTO) 100 %; WHITE BLOOD COUNT 4.4 10^3/uL (4.0-10.5)
[2019-06-18 10:38] LABS: ALANINE AMINOTRANSFERASE 37 U/L (21-72); ALBUMIN 3.8 g/dL (3.5-5.0); ALKALINE PHOSPHATASE 47 U/L (38-126); ANION GAP 16 (5-19); ASPARTATE AMINO TRANSFERASE 77 U/L (17-59); BILIRUBIN,DIRECT 0.6 mg/dL (0.0-0.4); BILIRUBIN,TOTAL 1.1 mg/dL (0.2-1.3); BLOOD UREA NITROGEN 11 mg/dL (7-20); CALCIUM 9.7 mg/dL (8.4-10.2); CARBON DIOXIDE 22 mmol/L (22-30); CHLORIDE 97 mmol/L (98-107); CHOLESTEROL 113.42 mg/dL (0-200); GLUCOSE 99 mg/dL (75-110); POTASSIUM 3.1 mmol/L (3.6-5.0); TOTAL PROTEIN 7.9 g/dL (6.3-8.2); TRIGLYCERIDES 57 mg/dL (<150)
[2019-06-18 10:49] LABS: DIRECT LDL 65 mg/dL (<100)
== END ==
LOC: CCC 09:44
DX: I10 Essential (primary) hypertension (principal)
CPT/HCPCS: 36415; 80053; 80061; 83036; 84153; 85025

== ENCOUNTER → 2019-07-09 | Outpatient (CLI) | payer OTHER ==
[2019-07-09 14:32] LABS: FOLATE 2.77 ng/mL (>2.76)
[2019-07-10 07:37] LABS: HEPATITIS C VIRUS AB <0.1 s/co ratio (0.0-0.9)
[2019-07-10 08:25] LABS: HEPATITS B SURFACE ANTIGEN Negative (Negative)
== END ==
LOC: CCC 12:06
DX: D53.9 Nutritional anemia, unspecified (principal); R94.5 Abnormal results of liver function studies
CPT/HCPCS: 36415; 82607; 82746; 82977; 86317; 86803; 86804; 87340

== ENCOUNTER → 2019-08-16 | Outpatient (CLI) | payer OTHER ==
[2019-08-16 14:01] LABS: ANION GAP 16 (5-19); BLOOD UREA NITROGEN 10 mg/dL (7-20); CALCIUM 9.7 mg/dL (8.4-10.2); CARBON DIOXIDE 24 mmol/L (22-30); CHLORIDE 91 mmol/L (98-107); GLUCOSE 98 mg/dL (75-110); POTASSIUM 3.3 mmol/L (3.6-5.0)
== END ==
LOC: CCC 13:02
DX: E87.6 Hypokalemia (principal)
CPT/HCPCS: 36415; 80048

== ENCOUNTER → 2019-09-20 | Outpatient (CLI) | payer OTHER ==
[2019-09-20 15:43] LABS: ANION GAP 13 (5-19); BLOOD UREA NITROGEN 12 mg/dL (7-20); CALCIUM 9.5 mg/dL (8.4-10.2); CARBON DIOXIDE 25 mmol/L (22-30); CHLORIDE 97 mmol/L (98-107); GLUCOSE 111 mg/dL (75-110); POTASSIUM 3.8 mmol/L (3.6-5.0)
== END ==
LOC: CCC 13:58
DX: I10 Essential (primary) hypertension (principal); E87.6 Hypokalemia
CPT/HCPCS: 36415; 80048

== ENCOUNTER → 2019-11-15 | Outpatient (CLI) | payer OTHER ==
--- NOTE | 2019-11-15 17:10 | RADIOLOGY REPORT (SQ) ---
EXAM DESCRIPTION: U/S ABDOMEN COMPLETE W/O DOP COMPLETED DATE/TIME: 11/15/2019 9:48 am REASON FOR STUDY: ELEVATED LFTS R94.5 ABNORMAL RESULTS OF LIVER FUNCTION STUDIES COMPARISON: None. TECHNIQUE: Dynamic and static grayscale images acquired of the abdomen and recorded on PACS. Additio nal selected color Doppler and spectral images recorded. Note: Study does not meet criteria for a complete doppler/duplex scan LIMITATIONS: None. FINDINGS: PANCREAS: No masses. Visualized pancreatic duct normal caliber. LIVER: Echotexture is coarse with increased echogenicity consistent with fatty infiltration. LIVER VASCULATURE: Normal directional flow of the main portal vein and hepatic veins. GALLBLADDER: No stones. Normal wall thickness. No pericholecystic fluid. ULTRASOUND-DETECTED MONTIEL'S SIGN: Negative. INTRAHEPATIC DUCTS AND COMMON DUCT: CBD and intrahepatic ducts normal caliber. No filling defects. INFERIOR VENA CAVA: Normal flow. AORTA: No aneurysm. RIGHT KIDNEY: Normal size. Normal echogenicity. No solid or suspicious masses. No hydronephrosis. No calcifications. LEFT KIDNEY: Normal size. Normal echogenicity. No solid or suspicious masses. No hydronephrosis. Po ssible calculus in midpole. SPLEEN:Normal size. No solid masses. PERITONEAL AND PLEURAL SPACES: No ascites or effusions. OTHER: No other significant finding. IMPRESSION: FATTY LIVER. POSSIBLE LEFT RENAL CALCULUS. NO OTHER SIGNIFICANT FINDING. TECHNICAL DOCUMENTATION: JOB ID: [id number] [place] [employer]- All Rights Reserved Reading location - IP/workstation name: [email or web address]
== END ==
LOC: RAD 08:45
PROVIDERS: ATTEND Internal Medicine
DX: K76.0 Fatty (change of) liver, not elsewhere classified (principal); R94.5 Abnormal results of liver function studies; F10.10 Alcohol abuse, uncomplicated
CPT/HCPCS: 76700

== ENCOUNTER 2020-07-03 17:39 | Emergency (ER) | payer SELFPAY ==
--- NOTE | 2020-07-03 18:16 | ER Document Report ---
ED General - General Stated Complaint: UNRESPONSIVE Primary Care Provider: HENNA SINGH MD [Primary Care Provider] - Follow up as needed Mode of Arrival: Medic Information source: Emergency Med Personnel Notes: This 55-year-old male arrives by EMS intubated prior to arrival with 150 of rocuronium and 200 mg of ketamine IV. Patient arrives with black tarry stools and black coffee ground emesis by history. He received 150 of rocuronium and 200 mg of ketamine per EMS. Patient was found unresponsive by EMS with history per sister of vomiting defecation and trismus. He has a history of liver failure and alcoholism. Chest x-ray upon arrival was interstitial and the KUB was positive for SBO type picture. Patient's blood pressure was 80/57 with pulse 111 with a BGL 92 per EMS. No temperature was taken. Upon arrival he was 91/57. Enma is the name of his sister at [phone]. She is currently and the [facility] room here in the ER and I will speak with her at [phone]. Rectal exam done here reveals a maroon-colored bleed. A NG tube was placed by nursing staff with deflation of large gastric bubble. I spoke with Sister Renee and her who live in [place]. Patient himself lives in [place] with other individuals. He had a similar situation last week in which he passed out and they called an ambulance and therefore she requested these people to call them if something happens and they called sister today. Do not sister lives in [place] and her phone number is [phone] and they request that he go to [place] if possible because they do have a sister by name of Jen who works at the lab there. He has 4 sisters Enma lives in [place] and there is leon and Jen. Patient also is on losartan and HCTZ as well as potassium and may have been taking his blood pressure medicines as well as having a GI bleed. He smokes 1 pack of cigarettes vantage or basic cigarettes daily. TRAVEL OUTSIDE OF THE [place] IN LAST 30 DAYS: No - HPI Onset: Just prior to arrival Onset/Duration: Sudden - Related Data Allergies/Adverse Reactions: aspirin [From [facility]] Allergy (Verified 02/23/17 20:51) caffeine [From [facility]] Allergy (Verified 02/23/17 20:51) orphenadrine [From [facility]] Allergy (Verified 02/23/17 20:51) Past Medical History - General Information source: Emergency Med Personnel - Social History Smoking Status: Current Every Day Smoker Cigarette use (# per day): Yes Chew tobacco use (# tins/day): No Smoking Education Provided: Yes Frequency of alcohol use: Heavy - According to his sister Renee patient has been a drinking of alcohol since he was 14 years old which began with tequila and beer but now he drinks Giles Dickel and Naresh Chaudhryels on a daily basis. There is also some question of whether he uses local drugs as well. Family History: Reviewed & Not Pertinent - Past Medical History Cardiac Medical History: Reports: Hx Hypertension Pulmonary Medical History: Reports: Hx COPD Renal/ Medical History: Denies: Hx Peritoneal Dialysis Past Surgical History: Reports: Hx Orthopedic Surgery - ARM Review of Systems - Review of Systems -: Yes ROS unobtainable due to patient's medical condition Constitutional: Weakness, Recent illness Physical Exam - Vital signs Vitals: Resp Pulse Ox 12 98 07/03/20 17:55 07/03/20 17:55 Interpretation: Hypotensive, Tachycardic - General General appearance: Unresponsive - intubated - HEENT Head: Normocephalic, Atraumatic Eyes: Normal Pupils: PERRL Pharynx: Normal Neck: Normal Course - Vital Signs Vital signs: Temp Pulse Resp BP Pulse Ox 96.2 F L 114 H 31 H 112/62 97 07/03/20 20:16 07/03/20 20:40 07/03/20 20:40 07/03/20 20:31 07/03/20 20:40 - Laboratory Result Diagrams: 07/03/20 17:46 07/03/20 17:46 Laboratory results interpreted by me: 07/03/20 07/03/20 07/03/20 17:46 17:46 17:46 WBC 16.6 H RBC 1.68 L Hgb 5.8 L Hct 17.5 L MCV 105 H MCH 34.3 H RDW 16.7 H Plt Count 115 L Lymph % (Auto) 12.1 L Absolute Neuts (auto) 13.4 H Seg Neutrophils % 80.4 H PT APTT Carbon Dioxide 18 L Anion Gap 20 H BUN 58 H Creatinine 2.65 H Est GFR ( Amer) 30 L Est GFR (MDRD) Non-Af 25 L Glucose 114 H Lactic Acid Calcium 8.3 L Total Bilirubin 5.7 H Direct Bilirubin 3.2 H AST 95 H Alkaline Phosphatase 28 L Total Protein 5.9 L Albumin 2.2 L Crossmatch See Detail 07/03/20 07/03/20 17:46 17:46 WBC RBC Hgb Hct MCV MCH RDW Plt Count Lymph % (Auto) Absolute Neuts (auto) Seg Neutrophils % PT 28.8 H APTT 44.9 H Carbon Dioxide Anion Gap BUN Creatinine Est GFR ( Amer) Est GFR (MDRD) Non-Af Glucose Lactic Acid 11.0 H Calcium Total Bilirubin Direct Bilirubin AST Alkaline Phosphatase Total Protein Albumin Crossmatch - Diagnostic Test Radiology reviewed: Reports reviewed - EKG Interpretation by Me EKG shows normal: Sinus rhythm Rate: Tachycardia - [address] elevation or depression and no T wave eleva tion or depression axis wnl Rhythm: NSR Critical Care Note - Critical Care Note Comments: I spoke with R[place]a and then Alton at [place] for potential travel transfer and they would like demographic sheet sent to [phone]. I spoke with Caio at transfer center at [facility] and then with Dr. Castro at [phone] and he accepted the patient and she will arrange for air transport Discharge - Discharge Clinical Impression: Unresponsive state, Tachycardia GI bleed Qualifiers: GI bleed type/associated pathology: unspecified gastrointestinal hemorrhage type Qualified Code(s): K92.2 - Gastrointestinal hemorrhage, unspecified Condition: Fair Disposition: [facility] Referrals: HENNA SINGH MD [Primary Care Provider] - Follow up as needed
[2020-07-03] MEDS ORDERED: FAMOTIDINE INJ/PF 20 MG/2 ML SDV IV ONE (18:18)
[2020-07-03] MEDS ORDERED: OCTREOTIDE ACETATE INJ/PF 100 MCG/1 ML SDV IV ONE (18:19)
[2020-07-03] MEDS ORDERED: PANTOPRAZOLE SODIUM 40 MG VIAL IV ONE (18:19)
[2020-07-03] MEDS ORDERED: NORMAL SALINE 250 ML IV PRN ×2 (18:39)
--- NOTE | 2020-07-03 18:48 | RADIOLOGY REPORT (SQ) ---
EXAM DESCRIPTION: CHEST SINGLE VIEW IMAGES COMPLETED DATE/TIME: 07/03/2020 5:20 pm REASON FOR STUDY: ETT AND NG PLACEMENT COMPARISON: 09/04/2018 EXAM PARAMETERS: NUMBER OF VIEWS: One view. TECHNIQUE: Single frontal radiographic view of the chest acquired. RADIATION DOSE: NA LIMITATIONS: None. FINDINGS: LUNGS AND PLEURA: No opacities, masses or pneumothorax. No pleural effusion. MEDIASTINUM AND HILAR STRUCTURES: No masses. Contour normal. HEART AND VASCULAR STRUCTURES: Heart normal in size. Normal vasculature. BONES: No acute findings. HARDWARE: An endotracheal tube tip is in the lower trachea approximately 3 cm above the cachorro. No e sophagogastric tube is identified. OTHER: No other significant finding. IMPRESSION: No acute cardiopulmonary disease. Endotracheal tube is in good position. TECHNICAL DOCUMENTATION: JOB ID: [id number] 2010 [employer]- All Rights Reserved Reading location - IP/workstation name: [email or web address]
--- NOTE | 2020-07-03 18:49 | RADIOLOGY REPORT (SQ) ---
EXAM DESCRIPTION: KUB/ABDOMEN (SINGLE VIEW) IMAGES COMPLETED DATE/TIME: 07/03/2020 5:20 pm REASON FOR STUDY: ETT AND NG PLACEMENT COMPARISON: None. NUMBER OF VIEWS: One view. TECHNIQUE: Supine radiographic image of the abdomen acquired. LIMITATIONS: None. FINDINGS: BOWEL GAS PATTERN: Multiple stacked dilated gas-filled loops of small bowel suggestive of obstruction. No significant gas in the colon or rectum. CALCIFICATIONS: Calcified pelvic phleboliths. SOFT TISSUES: No gross mass or suggestion of organomegaly. HARDWARE: Endotracheal tube tip and side-hole are below the diaphragm within the stomach. BONES: No acute fracture. No worrisome bone lesions. OTHER: No other significant finding. IMPRESSION: Small bowel obstruction. Esophagogastric tube is within the stomach. TECHNICAL DOCUMENTATION: JOB ID: [id number] 2010 [employer]- All Rights Reserved Reading location - IP/workstation name: [email or web address]
[2020-07-03 19:05] LABS: ABSOLUTE BASOPHILS # (AUTO) 0.1 10^3/uL (0.0-0.2); ABSOLUTE MONOCYTES (AUTO) 1.2 10^3/uL (0.1-1.4); ABSOLUTE NEUT (AUTO) 13.4 10^3/uL (1.7-8.2); BASOPHILS % (AUTO) 0.3 % (0-2); EOSINOPHILS % (AUTO) 0.1 % (0-6); HEMATOCRIT 17.5 % (37.9-51.0); LYMPHOCYTES % (AUTO) 12.1 % (13-45); MEAN CORPUSCULAR HEMOGLOBIN 34.3 pg (27.0-33.4); MEAN CORPUSCULAR HGB CONC 32.8 g/dL (32.0-36.0); MEAN CORPUSCULAR VOLUME 105 fl (80-97); MONOCYTES % (AUTO) 7.1 % (3-13); PLATELET COUNT 115 10^3/uL (150-450); RED BLOOD COUNT 1.68 10^6/uL (4.35-5.55); RED CELL DISTRIBUTION WIDTH 16.7 % (11.5-14.0); SEGMENTED NEUTROPHILS % (AUTO) 80.4 % (42-78); TOTAL CELLS COUNTED % (AUTO) 100 %; WHITE BLOOD COUNT 16.6 10^3/uL (4.0-10.5)
[2020-07-03 19:08] LABS: HEMOGLOBIN 5.8 g/dL (13.5-17.0)
[2020-07-03 19:10] LABS: ALBUMIN 2.2 g/dL (3.5-5.0); ALKALINE PHOSPHATASE 28 U/L (38-126); ASPARTATE AMINO TRANSFERASE 95 U/L (17-59); BILIRUBIN,DIRECT 3.2 mg/dL (0.0-0.4); BILIRUBIN,TOTAL 5.7 mg/dL (0.2-1.3); BLOOD UREA NITROGEN 58 mg/dL (7-20); CALCIUM 8.3 mg/dL (8.4-10.2); GLUCOSE 114 mg/dL (75-110); POTASSIUM 4.8 mmol/L (3.6-5.0); TOTAL PROTEIN 5.9 g/dL (6.3-8.2)
[2020-07-03 19:15] LABS: CARBON DIOXIDE 18 mmol/L (22-30); CHLORIDE 102 mmol/L (98-107)
[2020-07-03 19:18] LABS: ALCOHOL < 10 mg/dL (NONE DETECTED); ANION GAP 20 (5-19)
--- NOTE | 2020-07-03 19:27 | RADIOLOGY REPORT (SQ) ---
EXAM DESCRIPTION: CT HEAD WITHOUT IMAGES COMPLETED DATE/TIME: 07/03/2020 7:18 pm REASON FOR STUDY: ms change COMPARISON: None. TECHNIQUE: Axial images acquired through the brain without intravenous contrast. Images reviewed wi th bone, brain and subdural windows. Additional sagittal and coronal reconstructions were generated. Images stored on PACS. All CT scanners at this facility use dose modulation, iterative reconstruction, and/or weight based d osing when appropriate to reduce radiation dose to as low as reasonably achievable (ALARA). [facility]: Dose Right [facility]: CareDose [facility]: Dose Right [facility]: Teradose 4D [facility]: [employer] RADIATION DOSE: CT Rad equipment meets quality standard of care and radiation dose reduction techniq ues were employed. CTDIvol: 53.2 mGy. DLP: 1124 mGy-cm. mGy. LIMITATIONS: None. FINDINGS: VENTRICLES: Normal size and contour. CEREBRUM: No masses. No hemorrhage. No midline shift. No evidence for acute infarction. Normal gra y/white matter differentiation. No areas of low density in the white matter. CEREBELLUM: No masses. No hemorrhage. No alteration of density. No evidence for acute infarction. EXTRAAXIAL SPACES: No fluid collections. No masses. ORBITS AND GLOBE: No intra- or extraconal masses. Normal contour of globe without masses. CALVARIUM: No fracture. PARANASAL SINUSES: No fluid or mucosal thickening. SOFT TISSUES: No mass or hematoma. OTHER: No other significant finding. IMPRESSION: NORMAL BRAIN CT WITHOUT CONTRAST. EVIDENCE OF ACUTE STROKE: NO. COMMENT: Quality ID # [id number]: Final reports with documentation of one or more dose reduction techniques (e.g., Automated exposure control, adjustment of the mA and/or kV according to patient size, use of iterative reconstruction technique) TECHNICAL DOCUMENTATION: JOB ID: [id number] 2010 [employer]- All Rights Reserved Reading location - IP/workstation name: [email or web address]
--- NOTE | 2020-07-03 19:35 | RADIOLOGY REPORT (SQ) ---
EXAM DESCRIPTION: CT ABD/PELVIS WITH IV ONLY IMAGES COMPLETED DATE/TIME: 07/03/2020 7:18 pm REASON FOR STUDY: ms change COMPARISON: None. TECHNIQUE: CT scan of the abdomen and pelvis performed using helical scanning technique with dynamic intravenous contrast injection. No oral contrast. Images reviewed with lung, soft tissue, and bone windows. Reconstructed coronal and sagittal MPR images reviewed. Delayed images for evaluation of the urinary system also acquired. All images stored on PACS. All CT scanners at this facility use dose modulation, iterative reconstruction, and/or weight based d osing when appropriate to reduce radiation dose to as low as reasonably achievable (ALARA). [facility]: Dose Right [facility]: CareDose [facility]: Dose Right [facility]: Teradose 4D [facility]: [employer] CONTRAST TYPE AND DOSE: contrast/concentration: Isovue 350.00 mmol/ml; Total Contrast Delivered: 62. 0 ml; Total Saline Delivered: 61.9 ml RENAL FUNCTION: Testing waived by the emergency room physician. RADIATION DOSE: CT Rad equipment meets quality standard of care and radiation dose reduction techniq ues were employed. CTDIvol: 15.2 - 18.3 mGy. DLP: 1882 mGy-cm.. LIMITATIONS: None. FINDINGS: LOWER CHEST: No significant findings. No nodules or infiltrates. LIVER: The liver is somewhat small with slightly nodular border. No mass. SPLEEN: Spleen is the upper limit of normal. PANCREAS: No masses. No significant calcifications. No adjacent inflammation or peripancreatic fluid collections. Pancreatic duct not dilated. GALLBLADDER: No identified stones by CT criteria. No inflammatory changes to suggest cholecystitis. ADRENAL GLANDS: No significant masses or asymmetry. RIGHT KIDNEY AND URETER: No solid masses. No significant calcifications. No hydronephrosis or hyd roureter. LEFT KIDNEY AND URETER: No solid masses. No significant calcifications. No hydronephrosis or hydr oureter. AORTA AND VESSELS: No aneurysm. No dissection. Renal arteries, SMA, celiac without stenosis. RETROPERITONEUM: No retroperitoneal adenopathy, hemorrhage or masses. BOWEL AND PERITONEAL CAVITY: No masses or inflammatory changes. Moderate ascites is present. APPENDIX: Not identified. PELVIS: The bladder is partially decompressed. A Galindo catheter is present. No pelvic masses. Ther e is some free fluid. ABDOMINAL WALL: No masses. No hernias. BONES: No significant or acute findings. OTHER: No other significant finding. IMPRESSION: Moderate ascites. Possible hepatic cirrhosis. No other significant finding. TECHNICAL DOCUMENTATION: JOB ID: [id number] Quality ID # [id number]: Final reports with documentation of one or more dose reduction techniques (e.g., Au tomated exposure control, adjustment of the mA and/or kV according to patient size, use of iterative reconstruction technique) 2010 [employer] All Rights Reserved Reading location - IP/workstation name: [email or web address]
[2020-07-03 20:08] LABS: INTERNATIONAL RATION (INR) 2.72; PROTHROMBIN TIME 28.8 SEC (11.4-15.4)
[2020-07-03 20:09] LABS: PARTIAL THROMBOPLASTIN TIME 44.9 SEC (23.5-35.8)
--- NOTE | 2020-07-03 20:28 | EKG REPORT ---
SEVERITY:- ABNORMAL ECG - SINUS TACHYCARDIA ABNRM R PROG, CONSIDER ASMI OR LEAD PLACEMENT : Confirmed by: Will Pineda MD 03-Jul-2020 20:27:23
[2020-07-03 22:36] LABS: APPEARANCE,URINE SLIGHTLY-CLOUDY; BILIRUBIN,URINE NEGATIVE (NEGATIVE); COLOR,URINE AMBER; GLUCOSE, URINE NEGATIVE (NEGATIVE); KETONES,URINE TRACE mg/dL (NEGATIVE); LEUKOCYTE ESTERASE,URINE NEGATIVE (NEGATIVE); NITRITE,URINE NEGATIVE (NEGATIVE); PROTEIN,URINE NEGATIVE (NEGATIVE); URINE SPECIFIC GRAVITY 1.018
[2020-07-04 00:09] VITALS: BP 97/64
== END 2020-07-04 00:11 | disposition short-term general hospital (02) ==
LOC: ER 17:39
DX: K92.2 Gastrointestinal hemorrhage, unspecified (principal); R11.10 Vomiting, unspecified; R00.0 Tachycardia, unspecified; F17.210 Nicotine dependence, cigarettes, uncomplicated; J44.9 Chronic obstructive pulmonary disease, unspecified; R53.1 Weakness; Z20.828 Contact with and (suspected) exposure to other viral communicable diseases; Z79.899 Other long term (current) drug therapy; Z88.8 Allergy status to other drugs, medicaments and biological substances
CPT/HCPCS: 93005; 99285; 96375; 96365; 96366; 86900; 86901; 36415; 36430; 86850; 80307; 83605; 85025; 85610; 85730; 82270; 87635; 80053; 81001; 86920; 71045; 74018; 70450; 74177; 94660; 93010; P9016; J2354; C9113; S0028; C9803